=== PATIENT | female | born 1945 | race American Indian/Alaskan Native ===

== ENCOUNTER → 2017-01-06 16:57 | Outpatient (CLI) | payer MEDICARE, OTHER | END | disposition home or self-care (01) | LOC: D.MAMMO 12-06 14:30 | DX: Z12.31 Encounter for screening mammogram for malignant neoplasm of breast (principal) ==

== ENCOUNTER 2017-07-28 11:16 | Observation (INO) | payer MEDICARE, OTHER ==
[2017-07-28 15:43] LABS: BASOPHILS 0.4 % (0-2); EOSINOPHILS 1.5 % (0-7); HEMATOCRIT 42.9 % (36.0-48.0); HEMOGLOBIN 14.2 g/dL (12-16); IMMATURE GRANULOCYTES 0.3 % (0-5); LYMPHOCYTES 46.1 % (15-50); MCH 30.7 pg (26.0-34.0); MCHC 33.1 g/dL (31.0-37.0); MCV 92.9 fL (80.0-100.0); MEAN PLATELET VOLUME 9.7 fL (7.4-10.4); NEUTROPHILS 43.7 % (40-80); PLATELET COUNT 227 10x3/uL (130-400); RBC 4.62 10x6/uL (4.00-5.40); RDW 12.9 % (11.5-14.5); WBC 7.4 10x3/uL (4.8-10.8)
[2017-07-28 15:58] LABS: ALBUMIN 3.5 g/dL (3.4-5.0); ALKALINE PHOSPHATASE 78 U/L (46-116); ALT (SGPT) 21 U/L (10-68); BILIRUBIN - TOTAL 0.24 mg/dL (0.2-1.3); CALC OSMOLALITY 279 mosm/kg (275-300); CALCIUM 8.9 mg/dL (8.5-10.1); CARBON DIOXIDE 27.1 mmol/L (21.0-32.0); CHLORIDE - SERUM 105 mmol/L (98-107); CREATINE KINASE 87 UL (21-215); CREATININE - SERUM 0.7 mg/dL (0.6-1.3); GLUCOSE 114 mg/dL (74-106); MAGNESIUM - SERUM 2.1 mg/dL (1.8-2.4); POTASSIUM - SERUM 3.7 mmol/L (3.5-5.1); PROTEIN - SERUM 7.3 g/dL (6.4-8.2); SODIUM 140 mmol/L (136-145); UREA NITROGEN 13 mg/dL (7-18); eGFR NON AFRICAN AMERICAN 87 mL/min (90-120)
--- NOTE | 2017-07-28 17:15 | NUR ---
RECEIVED TO ROOM 2213 VIA STRETCHER FROM ER. A/O X3. SOME DIFFICULTY WTIH MEMORY NOTED. FAMILY AT BEDSIDE. SKIN IS INTACT. C/O HEADACHE AT THIS TIME. WILL MONITOR.
[2017-07-28 17:22] VITALS: BP 167/77; BMI 34.8
[2017-07-28 20:00] VITALS: BP 139/70
[2017-07-28 22:15] LABS: CKMB 0.6 U/L (0.0-3.6); TROPONIN-I < 0.017 ng/mL (0.000-0.060)
[2017-07-29] VITALS: BP 144/64
--- NOTE | 2017-07-29 03:04 | NUR ---
ASSESSED, PT IS ASLEEP WITH EASY RESPIRATIONS AND NO SIGNS OF DISTRESS NOTED. THE ROOM IS VERY COLD AND LIGHTS ARE OFF. THE BED IS LOW, RAILS UP X'S 2 WITH THE CALL LIGHT AT HAND.
[2017-07-29 04:00] VITALS: BP 155/74
[2017-07-29 06:18] LABS: BASOPHILS 0.3 % (0-2); EOSINOPHILS 2.3 % (0-7); HEMATOCRIT 42.5 % (36.0-48.0); IMMATURE GRANULOCYTES 0.2 % (0-5); LYMPHOCYTES 40.4 % (15-50); MCH 30.3 pg (26.0-34.0); MCHC 32.9 g/dL (31.0-37.0); MEAN PLATELET VOLUME 9.8 fL (7.4-10.4); MONOCYTES 9.8 % (2-11); PLATELET COUNT 242 10x3/uL (130-400); RBC 4.62 10x6/uL (4.00-5.40); WBC 6.6 10x3/uL (4.8-10.8)
[2017-07-29 06:26] LABS: APTT 30.2 SECONDS (22.8-39.4); INR 0.93 (0.85-1.17); PROTIME 12.3 SECONDS (11.6-15.0)
[2017-07-29 07:11] LABS: CALC OSMOLALITY 276 mosm/kg (275-300); CARBON DIOXIDE 28.1 mmol/L (21.0-32.0); CHLORIDE - SERUM 104 mmol/L (98-107); CHOL - HDL RATIO 4.2 ratio (2.3-4.1); CHOLESTEROL, TOTAL 250 mg/dL (0-200); CKMB 0.3 U/L (0.0-3.6); CREATININE - SERUM 0.6 mg/dL (0.6-1.3); GLUCOSE 101 mg/dL (74-106); HDL CHOLESTEROL 60 mg/dL (32-96); LDL CHOLESTEROL 168 mg/dL (0-100); LDL-HDL RATIO 2.8 ratio (1.5-3.5); MAGNESIUM - SERUM 2.1 mg/dL (1.8-2.4); PHOSPHOROUS 2.7 mg/dL (2.5-4.9); POTASSIUM - SERUM 3.3 mmol/L (3.5-5.1); SODIUM 139 mmol/L (136-145); TRIGLYCERIDE 110 mg/dL (30-200); TROPONIN-I < 0.017 ng/mL (0.000-0.060); UREA NITROGEN 11 mg/dL (7-18); eGFR NON AFRICAN AMERICAN > 90 mL/min (90-120)
[2017-07-29 07:39] VITALS: BP 124/78
--- NOTE | 2017-07-29 07:52 | HP ---
PATIENT: SURESH SCHULTZ MEDICAL RECORD: [id number] ACCOUNT: [id number] LOCATION:[facility] : 43 ADMISSION DATE: 07/28/17 HISTORY AND PHYSICAL EXAMINATION HISTORY OF PRESENT ILLNESS: A 72-year-old female presented to the Emergency Room with unsteady gait, dizziness, fall with syncopal event on Tuesday, unclear why she fell, did not seek medical care until today. REVIEW OF SYSTEMS: CONSTITUTIONAL: No known change in weight or appetite. HEENT: Persistent migraine-type headache. No visual changes. Denies tinnitus, epistaxis or dysphagia. CARDIOVASCULAR: Denies chest pain, denies palpitations, denies any known arrhythmia. PULMONARY: Denies hemoptysis, denies night sweats. GASTROINTESTINAL: Denies hematemesis, hematochezia or melena. GENITOURINARY: Denies dysuria. MUSCULOSKELETAL: No acute changes. NEUROLOGIC: Unsteady gait, cephalgia, difficulty with concentration. ALLERGIES: No known drug allergies. MEDICATIONS: No current medications. PAST MEDICAL HISTORY: Significant for migraines and right knee replacement, rare to seek medical care. PHYSICAL EXAMINATION: VITAL SIGNS: Temperature 98.2, blood pressure 178/81, heart rate 67, respirations 20, O2 sats 96% on room air. GENERAL: Alert, oriented to person, place and time, slightly delayed responses. HEENT: Normocephalic, atraumatic. Eyes: Reactive. Ears: Canals patent, TMs are intact. Nose: Nares patent without drainage. Throat: No erythema, no exudates. NECK: Supple. No lymphadenopathy, no JVD. HEART: Regular rate and rhythm. No S3 or S4, no rub. LUNGS: Clear to auscultation bilaterally. Breathing is nonlabored. ABDOMEN: Soft, nontender. Bowel sounds all 4 quadrants. EXTREMITIES: Present times 4, no edema. NEUROLOGIC: Reported ataxia, unsteady gait. No appreciable focal deficits or weakness. IMAGING: Head CT, subtle areas of decreased attenuation within the left temporal lobe as well as the left periventricular white matter, possibly evolving stroke. ASSESSMENT AND PLAN: Syncope and collapse, unsteady gait, hypertension. MRI is pending. We will start blood pressure control, amlodipine 5 mg daily and monitor. We will obtain EKG. We will cycle cardiac enzymes. Again, MRI is pending. Consult neurology, Dr. Lopez. Supportive care. TRANSINT:[id number] Voice Confirmation ID: [id number] DOCUMENT ID: [id number] HISTORY AND PHYSICAL [id number] SURESH SCHULTZ ROBERT DO at 0752 CC: [id number] DICTATION DATE: 07/28/171801 SKI MAKER WOOD: 07/28/17 193 ADM IN [facility] [address] [place] [address]
--- NOTE | 2017-07-29 07:59 | NUR ---
AWAKE AND ALERT. ORIENTED X3. NO C/O THIS AM. LUNGS ARE CLEAR BILATERALLY, NO COUGH NOTED. SKIN IS INTACT WITHOUT REDNESS. SL TO RIGHT WRIST IS PATENT WITHOUT REDNESS AT INSERTION SITE. UP TO BR WITH MIN/SBA. VOIDED WITHOUT DIFFICULTY. CHELSEA CARE PER SELF.
--- NOTE | 2017-07-29 10:00 | NUR ---
RESTING QUIETLLY IN BED WITH HEAD AT 45 DEGREES. DENIES NEEDS.
--- NOTE | 2017-07-29 12:15 | NUR ---
LUNCH SERVED IN ROOM. ATE WELL.
[2017-07-29 12:20] VITALS: BP 108/60
--- NOTE | 2017-07-29 14:30 | NUR ---
ORDERS RECEIVED TO D/C HOME. PATIENT AWARE OF SAME.
[2017-07-29] MEDS ORDERED: MECLIZINE HCL25 MG PO (14:36)
[2017-07-29 15:49] VITALS: BP 125/66
[2017-07-29] MEDS ORDERED: NORVASC5 MG PO (16:08)
--- NOTE | 2017-07-29 16:58 | NUR ---
FAMILY HERE. DISCHARGED TO HOME AMBULATORY WITH FAMILY. DISCHARGE INSTRUCTIONS GIVEN BOTH VERBALLY AND WRITTEN. ALL QUESTIONS ANSWERED. PATIENT AND VERBALIZED UNDERSTANDING OF SAME. SL TO RIGHT HAND D/C WITH CATHETER INTACT. NEEDED PRESCRIPTIONS ESCRIBED TO PHARMACY OF CHOICE.
--- NOTE | 2017-08-15 09:38 | DS ---
PATIENT:SURESH SCHULTZ :43 MEDICAL RECORD: [id number] DISCHARGE SUMMARY ADMISSION DATE: 07/28/17 DISCHARGE DATE: 07/29/17 DATE OF ADMISSION: 07/28/2017 DATE OF DISCHARGE: 07/29/2017 ADMISSION DIAGNOSES: Reported syncope and collapse, unsteady gait, hypertension. DISCHARGE DIAGNOSES: Reported syncope and collapse, no trauma, unsteady gait, hypertension, positional vertigo. CONSULTS: Dr. Lopez, neurology. IMAGING PROCEDURES: CT of the head, subtle areas of decreased attenuation, possible evolving stroke. Subsequent MRI, no findings. HOSPITAL COURSE: The patient had an uneventful course. She was evaluated by neurology extensively. Had positional vertigo symptoms with the exam cleared for any acute stroke or subacute. The patient had excellent response to meclizine. Discharged to home in stable improved condition. PHYSICAL EXAMINATION: VITAL SIGNS: On discharge, temperature 98.2, blood pressure is 125/66, heart rate 71, respirations 18 and O2 sats 93% on room air. GENERAL: Alert and oriented. Normal gait. No neurological deficits. HEART: Regular rate and rhythm. LUNGS: Clear. EXTREMITIES: Present times 4, no edema. NEUROLOGIC: Intact. No focal deficits. DISCHARGE MEDICATIONS: Per med rec. FOLLOWUP: In the clinic in 10 to 14 days. TRANSINT:[id number] Voice Confirmation ID: [id number] DOCUMENT ID: [id number] CORONA RENTERIA DO at 0938 CC: [id number] DICTATION DATE: 08/14/17 1405 CUSTOM MARINE CANVAS FABRICATOR: 08/15/17 0254 DIS IN 07/29/17 [place] [id number]
== END 2017-07-29 17:02 | disposition home or self-care (01) ==
LOC: D.ER 11:16 → D.MS 15:07 → OBSVTIME 15:20 → D.MS 07-29 17:02
PROVIDERS: Emergency Medicine; ADMIT Family Medicine
DX: H81.11 Benign paroxysmal vertigo, right ear (principal); I10 Essential (primary) hypertension; G43.909 Migraine, unspecified, not intractable, without status migrainosus

== ENCOUNTER → 2019-05-24 09:00 | Outpatient (CLI) | payer MEDICARE, OTHER ==
[~2019-05-24 09:00] MED LIST: MECLIZINE HCL25 MG PO; NORVASC5 MG PO
== END | disposition home or self-care (01) ==
LOC: D.MAMMO 05-08 10:00
PROVIDERS: ATTEND Family Medicine
DX: Z12.31 Encounter for screening mammogram for malignant neoplasm of breast (principal)

== ENCOUNTER 2019-10-23 13:43 | Inpatient (IN) | payer MEDICARE, OTHER ==
[~2019-10-23] VITALS: Ht 154.9 cm; Wt 80.7 kg
[2019-10-23] MEDS ORDERED: ANASTROZOLE PO (14:05)
[2019-10-23 14:26] VITALS: BP 93/49
[2019-10-23 14:48] LABS: CALC OSMOLALITY 278 mosm/kg (275-300); CARBON DIOXIDE 26.1 mmol/L (21.0-32.0); CHLORIDE - SERUM 104 mmol/L (98-107); CREATININE - SERUM 0.9 mg/dL (0.6-1.3); GLUCOSE 136 mg/dL (74-106); POTASSIUM - SERUM 3.8 mmol/L (3.5-5.1); SODIUM 139 mmol/L (136-145); UREA NITROGEN 9 mg/dL (7-18); eGFR NON AFRICAN AMERICAN 65 mL/min (90-120)
[2019-10-23 14:54] LABS: BASOPHILS 0 % (0-2); EOSINOPHILS 2.9 % (0-7); HEMATOCRIT 46.7 % (36.0-48.0); HEMOGLOBIN 15.1 g/dL (12-16); IMMATURE GRANULOCYTES 0.2 % (0-5); LYMPHOCYTES 3.3 % (15-50); MCH 30.2 pg (26.0-34.0); MCHC 32.3 g/dL (31.0-37.0); MCV 93.4 fL (80.0-100.0); MEAN PLATELET VOLUME 9.7 fL (7.4-10.4); MONOCYTES 1.8 % (2-11); NEUTROPHILS 91.8 % (40-80); PLATELET COUNT 195 10x3/uL (130-400); RDW 13.1 % (11.5-14.5); WBC 9.1 10x3/uL (4.8-10.8)
[2019-10-23 15:00] VITALS: BP 123/65
[2019-10-23 15:06] LABS: ALBUMIN 3.5 g/dL (3.4-5.0); ALKALINE PHOSPHATASE 85 U/L (46-116); ALT (SGPT) 52 U/L (10-68); BILIRUBIN - TOTAL 0.37 mg/dL (0.2-1.3); CKMB 0.2 U/L (0.0-3.6); CREATINE KINASE 60 UL (21-215); PRO BNP 29 pg/mL (0-450); PROTEIN - SERUM 7.7 g/dL (6.4-8.2)
[2019-10-23 15:07] LABS: TROPONIN-I < 0.017 ng/mL (0.000-0.060)
[2019-10-23 15:32] LABS: APTT 26.9 SECONDS (22.8-39.4); INR 1.04 (0.85-1.17); PROTIME 13.1 SECONDS (11.6-15.0)
[2019-10-23 16:00] VITALS: BP 127/80
[2019-10-23 17:01] VITALS: BP 147/84
--- NOTE | 2019-10-23 17:20 | NUR ---
TO ROOM 2219 FROM ER VIA STRETCHER. ASSESSMENT PER GERA WARE RN.ORIENTATION TO ROOM.CALL LIGHT I REACH.
[2019-10-23 17:28] VITALS: BP 140/63; BMI 33.7
--- NOTE | 2019-10-23 20:00 | NUR ---
A/O WITH NO SIGNS OF DISTRESS. IV TO THE LT FOREARM WITH NO REDNESS OR SWELLING NOTED. NC @3L. CALLED MD FOR PAIN MEDS PER PT REQUEST. DENIES NO FURTHER NEEDS AT THIS TIME. CONTINUE PLAN OF CARE.
[2019-10-23 21:10] VITALS: BP 96/47
[2019-10-24 01:58] VITALS: BP 127/60
[2019-10-24 06:11] LABS: BASOPHILS 0.1 % (0-2); EOSINOPHILS 0.9 % (0-7); HEMATOCRIT 40.7 % (36.0-48.0); HEMOGLOBIN 13.2 g/dL (12-16); IMMATURE GRANULOCYTES 0.2 % (0-5); LYMPHOCYTES 4.4 % (15-50); MCH 30.1 pg (26.0-34.0); MCHC 32.4 g/dL (31.0-37.0); MCV 92.7 fL (80.0-100.0); MEAN PLATELET VOLUME 9.7 fL (7.4-10.4); NEUTROPHILS 93.4 % (40-80); PLATELET COUNT 190 10x3/uL (130-400); RBC 4.39 10x6/uL (4.00-5.40); RDW 13.2 % (11.5-14.5)
[2019-10-24 06:32] LABS: ALBUMIN 2.7 g/dL (3.4-5.0); ANION GAP 13.4 mmol/L (8-16); BILIRUBIN - TOTAL 0.3 mg/dL (0.2-1.3); CALCIUM 8.6 mg/dL (8.5-10.1); CARBON DIOXIDE 24.7 mmol/L (21.0-32.0); CREATININE - SERUM 0.8 mg/dL (0.6-1.3); MAGNESIUM - SERUM 1.8 mg/dL (1.8-2.4); PHOSPHOROUS 2.7 mg/dL (2.5-4.9); POTASSIUM - SERUM 4.1 mmol/L (3.5-5.1); PROTEIN - SERUM 6.5 g/dL (6.4-8.2)
--- NOTE | 2019-10-24 08:00 | NUR ---
ALERT AND ORIENTED. LUNGS WITH BLL WHEEZES. HEART SOUNDS S1 AND S2 HEARD IN ALL SHIELDS. BOWEL SOUNDS ACTIVE X 4. SKIN INTACT WITHOUT REDNESS. IV TO LFA PATENT WITHOUT REDNESS. DENIES PAIN. DENIES NEEDS. STATES WILL WEAR SCDS. SCDS PLACED ON PATIENT BY LANDING SIGNAL OFFICER. BED LOW. CALL JACKSON AND PERSONAL ITEMS IN REACH. WILL CONTINUE TO MONITOR.
[2019-10-24 08:09] VITALS: BP 104/50
[2019-10-24 08:16] LABS: APPEARANCE CLEAR (CLEAR); COLOR YELLOW (YELLOW); GLUCOSE NEGATIVE (NEGATIVE); KETONE NEGATIVE (NEGATIVE); NITRITE NEGATIVE (NEGATIVE); PROTEIN NEGATIVE (NEGATIVE)
[2019-10-24 08:17] LABS: BILIRUBIN NEGATIVE (NEGATIVE); UROBILINOGEN NORMAL (NORMAL)
--- NOTE | 2019-10-24 09:51 | NUR ---
RESTING IN BED. DENIES NEEDS. WILL CONTINUE TO MONITOR.
--- NOTE | 2019-10-24 10:58 | NUR ---
HAT PLACED IN TOILET FOR STRICT I/O PER GARMENT SEWING MACHINE OPERATOR ORDER.
--- NOTE | 2019-10-24 13:53 | NUR ---
RESTING IN BED. DENIES NEEDS. WILL CONTINUE TO MONITOR.
[2019-10-24 15:49] VITALS: BP 121/58
--- NOTE | 2019-10-24 19:38 | NUR ---
IN BED WITH EYES OPEN AND TELEVISION ON. ABLE TO VOICE ALL NEEDS. COMPLAINTS OF DISCOMFORT TO BILATERAL IV SITES, NOTED TO NO LONGER BE PATENT, RESITED TO LEFT HAND. OLD CATHETERS TIP INTACT UPON DISCONTINUING. NO S/S OF ANY ACUTE DISTRESS NOTED. WILL NOTE ANY CHANGE.
[2019-10-25] VITALS: BP 120/57
--- NOTE | 2019-10-25 02:53 | NUR ---
I have reviewed this patient and I concur with the Shift Assessment completed by the Licensed Practical Nurse today this shift.
[2019-10-25 06:57] LABS: ANION GAP 11.5 mmol/L (8-16); CALCIUM 9.3 mg/dL (8.5-10.1); CARBON DIOXIDE 26.1 mmol/L (21.0-32.0); CREATININE - SERUM 0.8 mg/dL (0.6-1.3); PHOSPHOROUS 2.3 mg/dL (2.5-4.9); POTASSIUM - SERUM 3.6 mmol/L (3.5-5.1)
[2019-10-25 07:02] LABS: MAGNESIUM - SERUM 2.3 mg/dL (1.8-2.4)
--- NOTE | 2019-10-25 07:41 | NUR ---
ALERT AND ORIENTED. LUNGS DIMINISHED TO BLL. HEART SOUNDS S1 AND S2 HEARD IN ALL SHIELDS. BOWEL SOUNDS ACTIVE X 4. SKIN INTACT WITHOUT REDNESS. IV PATENT TO LEFT HAND WITHOUT REDNESS. TELEMETRY IN PLACE SHOWING 99 NORMAL SINUS ON DEC. DENIES NEEDS. BED LOW. CALL JACKSON AND PERSONAL ITEMS IN REACH. WILL CONTINUE TO MONITOR.
[2019-10-25 08:43] VITALS: BP 106/59
[2019-10-25 09:11] LABS: BASOPHILS 0.1 % (0-2); EOSINOPHILS 0 % (0-7); HEMATOCRIT 37.9 % (36.0-48.0); HEMOGLOBIN 12.3 g/dL (12-16); IMMATURE GRANULOCYTES 0.3 % (0-5); LYMPHOCYTES 6.7 % (15-50); MCH 29.9 pg (26.0-34.0); MCHC 32.5 g/dL (31.0-37.0); MONOCYTES 4.1 % (2-11); NEUTROPHILS 88.8 % (40-80); PLATELET COUNT 224 10x3/uL (130-400); RBC 4.12 10x6/uL (4.00-5.40); RDW 13.1 % (11.5-14.5); WBC 11.5 10x3/uL (4.8-10.8)
[2019-10-25 09:33] VITALS: Ht 154.9 cm; Wt 80.7 kg
--- NOTE | 2019-10-25 09:38 | NUR ---
RESTING IN BED. REQUESTS DOOR SHUT TO TAKE NAP. WILL CONTINUE TO MONITOR.
[2019-10-25 12:26] VITALS: BP 122/61
--- NOTE | 2019-10-25 16:15 | NUR ---
RESTING IN BED. DENIES NEEDS. WILL CONTINUE TO MONITOR.
[2019-10-25 16:40] VITALS: BP 116/57
--- NOTE | 2019-10-25 19:00 | NUR ---
BEDSIDE REPORT RECEIVED AND CARE OF PT ASSUMED. PT SITTING UP IN CHAIR. IV TO LEFT HAND PATENT WITH 1/2 NS INFUSING AT 50 ML/HR. TELEMETRY IN PLACE AND READING SR AT THIS TIME. WILL MONITOR FOR NEEDS.
[2019-10-25 20:00] VITALS: BP 108/53
--- NOTE | 2019-10-25 20:58 | NUR ---
HS MEDICATIONS GIVEN. WILL CONTINUE TO MONITOR FOR NEEDS.
[2019-10-26] VITALS: BP 116/60
[2019-10-26 04:00] VITALS: BP 133/70
[2019-10-26 06:30] LABS: BASOPHILS 0 % (0-2); EOSINOPHILS 0.1 % (0-7); HEMATOCRIT 38.9 % (36.0-48.0); HEMOGLOBIN 12.6 g/dL (12-16); IMMATURE GRANULOCYTES 0.5 % (0-5); LYMPHOCYTES 7.9 % (15-50); MCH 29.4 pg (26.0-34.0); MCHC 32.4 g/dL (31.0-37.0); MCV 90.9 fL (80.0-100.0); MONOCYTES 3.5 % (2-11); PLATELET COUNT 243 10x3/uL (130-400); RBC 4.28 10x6/uL (4.00-5.40); RDW 13.3 % (11.5-14.5); WBC 12.6 10x3/uL (4.8-10.8)
[2019-10-26 06:55] LABS: CALCIUM 9.3 mg/dL (8.5-10.1); MAGNESIUM - SERUM 2.4 mg/dL (1.8-2.4)
--- NOTE | 2019-10-26 08:04 | MORECARE ---
CASE MANAGEMENT DISCHARGE SUMMARY PATIENT: SURESH SCHULTZ CHRISTOFER UNIT: [id number] ADM DATE: 10/23/19 AGE: 74 : 43 SEX: F ROOM/BED: D.221 AUTHOR: ERIC CHEEK PHYSICIAN: REFERRING PHYSICIAN: JESIKA BENNETT MD DATE OF SERVICE: 10/26/19 Discharge Plan Patient Name: SURESH SCHULTZ Facility: [facility]:[place] : 1945 Planned Disposition: Home or Self Care Anticipated Discharge Date: Discharge Date: Expected LOS: Initial Reviewer: [email or web address] Initial Review Date: 10/23/2019 Generated: 10/26/19 9:04 am Comments DCP- Discharge Planning Updated by [email or web address]: Bisi Ríos on 10/26/19 7:[address] Patient Name: SURESH SCHULTZ Admission Status: ER Accout number: [id number] Admission Date: 10-23-2019 : 1945 Admission Diagnosis: Attending: JESIKA BENNETT Current LOS: 3 Anticipated DC Date: Planned Disposition: Home or Self Care Primary Insurance: MEDICARE A & B Discharge Planning Comments: CM met with patient to complete initial dc planning assessment. CM educated patient on the CM role and verbal consent given by patient to complete assessment. Patient lives at home with her spouse where she is independent with her care. At discharge patient plans to return home and feels this is a safe discharge. Her will be her stock driver home. CM discussed availability of home health, rehab services, and medical equipment. Patient denied known discharge needs at this time. IMM served and explained. IF she will need a nebulizer, IMELDA with [employer] has been signed and placed in chart. CM will continue to follow and will assist as needed with dc plans/needs. Vertical Punch Operator: Bisi Ríos DCPIA - Discharge Planning Initial Assessment Updated by [email or web address]: Bisi Ríos on 10/26/19 8:01 am * Is the patient Alert and Oriented? Yes * How many steps to enter\exit or inside your home? * PCP DEXTER * Pharmacy [facility] * Preadmission Environment Home with Family * ADLs Independent * Equipment None * List name and contact numbers for known caregivers / representatives who currently or will assist patient after discharge: PERLA (SPOUSE) [phone] * Verbal permission to speak to the caregivers and representatives has been obtained from the patient. N/A * Community resources currently utilized None * Additional services required to return to the preadmission environment? No * Can the patient safely return to the preadmission environment? Yes * Has this patient been hospitalized within the prior 30 days at any hospital? No Coverage Notice Reviewer: [id number] Ríos Notice Issued Date-Time: 10/26/2019 7:15 Notice Type: IM Discharge Notice Notice Delivered To: Patient Relationship to Patient: Weigher Operator Name: Delivery Method: HAND - Hand Delivered Tish Days: Prior Verbal Notification: Recipient Understood Notice: Yes Recipient Signature: Yes Med Rec Note Co-signed by Attending: Coverage Notice Comment: Reviewer: [email or web address] Ríos Notice Issued Date-Time: 10/26/2019 7:15 Notice Type: Patient Choice Letter Notice Delivered To: Patient Relationship to Patient: Weigher Operator Name: Delivery Method: HAND - Hand Delivered Tish Days: Prior Verbal Notification: Recipient Understood Notice: Yes Recipient Signature: Yes Med Rec Note Co-signed by Attending: Coverage Notice Comment: imelda for [employer] if needs a nebulizer Patient Name: SURESH SCHULTZ Page [id number] at 0804 All edits/amendments must be made on the electronic document DICTATION DATE: 10/26/19803 HOSPITAL SALES REPRESENTATIVE: TIANNA 10/26/19803 RPT#: [id number] DC DATE: STATUS: ADM IN [facility] [address] [place] [address] END OF REPORT
--- NOTE | 2019-10-26 08:12 | NUR ---
PATIENT IN BED WITH EYES CLOSED RESTING QUIETLY. LUNGS CLEAR WITH NO WHEEZING. O2 .25L NC, SATS 95% AT REST. MOM AND DAD AT BEDSIDE. CALL LIGHT WITHIN REACH.
[2019-10-26 09:03] VITALS: BP 142/75
[2019-10-26] MEDS ORDERED: FEXOFENADINE HC60 MG PO (10:37)
[2019-10-26] MEDS ORDERED: FLUTICASONE PRO16 GM NASAL (10:38)
[2019-10-26] MEDS ORDERED: MUCINEX600 MG PO (10:38)
[2019-10-26] MEDS ORDERED: FLORAJEN3 CAPS460 MG PO (10:38)
[2019-10-26] MEDS ORDERED: TESSALON PERLE100 MG PO (10:38)
[2019-10-26] MEDS ORDERED: PREDNISONE10 MG PO (10:39)
[2019-10-26] MEDS ORDERED: OMNICEF300 MG PO (10:39)
[2019-10-26] MEDS ORDERED: ZITHROMAX500 MG PO (10:39)
[2019-10-26 12:10] VITALS: BP 125/68
--- NOTE | 2019-10-26 14:20 | NUR ---
PATIENT RECIEVED DC INSTRUCTIONS. VERBALIZED UNDERSTANDING. NO QUESTIONS AT THIS TIME. IV REMOVED WITH CATH TIP INTACT. EXPLAINED TO PICK MEDS UP AT [facility]. VERBALIZED UNDERSTANDING. CALLED CAB AND AMBULATED DOWN TO FRONT DOOR ESCORTED BY GRANDSON WITH PERSONAL BELONGINGS. REFUSED WC AT THIS TIME.
== END 2019-10-26 14:57 | disposition home or self-care (01) | DRG 871 ==
LOC: D.ER 13:43 → D.MS 15:43
PROVIDERS: Family Medicine; ADMIT Internal Medicine Nephrology; ATTEND Internal Medicine Nephrology
DX: A41.9 Sepsis, unspecified organism (principal); J18.9 Pneumonia, unspecified organism; J96.01 Acute respiratory failure with hypoxia; J90 Pleural effusion, not elsewhere classified; I10 Essential (primary) hypertension; Z85.3 Personal history of malignant neoplasm of breast; J20.9 Acute bronchitis, unspecified; E66.01 Morbid (severe) obesity due to excess calories; Z68.33 Body mass index [BMI] 33.0-33.9, adult

== ENCOUNTER → 2020-01-10 09:28 | Outpatient (CLI) | payer MEDICARE, OTHER ==
[2019-10-25 09:33] VITALS: BMI 33.6
[~2020-01-10 09:28] MED LIST changes: +ANASTROZOLE PO; +FEXOFENADINE HC60 MG PO; +FLORAJEN3 CAPS460 MG PO; +FLUTICASONE PRO16 GM NASAL; +MUCINEX600 MG PO; +OMNICEF300 MG PO; +PREDNISONE10 MG PO; +TESSALON PERLE100 MG PO; +ZITHROMAX500 MG PO
== END | disposition home or self-care (01) ==
LOC: D.RT 09:28
PROVIDERS: ATTEND Internal Medicine Pulmonary Disease
DX: Z87.09 Personal history of other diseases of the respiratory system (principal)